=== PATIENT | male | born 1990 | race Caucasian/White ===

== ENCOUNTER 2022-07-14 05:47 | Day surgery (SDC) | payer BC ==
[2022-07-13 14:00] LABS: BASOPHILS % (AUTO) 0.8 % (0.0-5.0); EOSINOPHILS % (AUTO) 2.3 % (0.0-8.0); HEMATOCRIT 47.5 % (42-54); LYMPHOCYTES % (AUTO) 25.4 % (21.0-51.0); MEAN CORPUSCULAR HEMOGLOBIN 30.1 pg (27.0-33.0); MEAN CORPUSCULAR HGB CONC 34.3 g/dL (32.0-36.0); MEAN CORPUSCULAR VOLUME 87.6 fL (79-99); MONOCYTES % (AUTO) 5.6 % (3.0-13.0); NEUTROPHILS % (AUTO) 64.9 % (40.0-77.0); PLATELET COUNT (AUTO) 207 K/uL (130-400); RED BLOOD CELL COUNT(AUTO) 5.42 MIL/uL (4.50-6.20); WHITE BLOOD COUNT (AUTO) 11.7 K/uL (4.8-10.8)
[2022-07-13 14:16] LABS: ALBUMIN 4.2 g/dL (3.5-5.0); BILIRUBIN,DIRECT 0.1 mg/dL (0.0-0.3); CREATININE 1.1 mg/dL (0.5-1.5); POTASSIUM 4.4 mmol/L (3.5-5.1); TOTAL PROTEIN, SERUM 7.7 g/dL (6.0-8.3)
[2022-07-13 14:17] LABS: INR 0.99 (0.85-1.15); PROTHROMBIN TIME 10.8 SEC (9.6-11.6)
[2022-07-13 14:18] VITALS: BP 139/77
[2022-07-13 14:18] LABS: PARTIAL THROMBOPLASTIN TIME 31.4 SEC (26.3-35.5)
[2022-07-14] VITALS (14 sets, daily range): BP systolic 95–158; BP diastolic 47–88
[~2022-07-14] VITALS: Ht 170.2 cm; Wt 110.3 kg
[2022-07-14] MEDS ORDERED: CEFAZOLIN SODIUM 1 GM VIAL ONE (06:19)
[2022-07-14] MEDS ORDERED: LACTATED RINGERS 1000ML 1,000 ML IV ONE (06:19)
[2022-07-14] MEDS ORDERED: LIDOCAINE PF 100MG/5ML (2%) SYRINGE 5ML ONE (09:45)
[2022-07-14] MEDS ORDERED: SUCCINYLCHOLINE CHLORIDE 20 MG/ML 10 ML VIAL ONE (09:45)
[2022-07-14] MEDS ORDERED: PROPOFOL 10 MG/ML 20ML VIAL IV ONE ×2 (09:46→10:18)
[2022-07-14] MEDS ORDERED: DEXAMETHASONE SOD PHOSPHATE 10MG/ML 1ML VIAL ONE (09:46)
[2022-07-14] MEDS ORDERED: MIDAZOLAM HCL 1 MG/ML 2ML VIAL ONE (09:46)
[2022-07-14] MEDS ORDERED: ONDANSETRON 4MG INJ ONE ×2 (09:46→12:17)
[2022-07-14] MEDS ORDERED: GLYCOPYRROLATE 1 MG/5 ML SYRINGE ONE (09:46)
[2022-07-14] MEDS ORDERED: NEOSTIGMINE 5MG/5ML SYR IV ONE (09:46)
[2022-07-14] MEDS ORDERED: ROCURONIUM 10MG/1ML SYR 10 MG/ML ML ONE (09:46)
[2022-07-14] MEDS ORDERED: FENTANYL CITRATE PF 50 MCG/1 ML 2ML VIAL ONE (09:46)
[2022-07-14] MEDS ORDERED: CEFAZOLIN SODIUM 2 GM VIAL IVPB ONE (10:10)
[2022-07-14] MEDS ORDERED: MEPERIDINE-PF 25 MG/ML SYG ONE ×2 (10:42→11:37)
[2022-07-14] MEDS ORDERED: KETOROLAC 30MG VIAL (30MG/ML) ONE (10:47)
[2022-07-14] MEDS ORDERED: TRAM50TA4 PO (12:17)
[2022-07-14] MEDS ORDERED: MORPHINE 4 MG SYG ONE (12:17)
== END 2022-07-14 12:45 | disposition home or self-care (01) ==
LOC: DAH 05:47
PROVIDERS: ATTEND Surgery
DX: K64.2 Third degree hemorrhoids (principal); K60.5 Anorectal fistula; F17.210 Nicotine dependence, cigarettes, uncomplicated; Z88.5 Allergy status to narcotic agent; Z20.822 Contact with and (suspected) exposure to COVID-19; Z98.890 Other specified postprocedural states; Z91.013 Allergy to seafood
CPT/HCPCS: 80076; 80048; 85025; 85610; 85730; 87426; 36415; 45541; 46948; A6260; A4663; A4606; J7120; J3010; J0690 ×2; J3490; J1100; J2710; J0330; J2001; J2250; J2704 ×2; J2405 ×2; J2270; J1885; J2175 ×2; A4649; A4930; A4215; A4223; A4222; A4221; A4600